=== PATIENT | male | born 1980 | race African-American/Black ===

== ENCOUNTER → 2019-04-03 | Outpatient (CLI) | payer OTHER ==
--- NOTE | 2019-04-03 14:09 | CT ---
EXAMINATION TYPE: CT abdomen pelvis wo con DATE OF EXAM: 04/03/2019 COMPARISON: None HISTORY: LUQ to epigastric pain/umbilical pain, acid reflux CT DLP: 887.3 mGycm Examination of the solid and hollow viscera is limited given the lack of contrast. FINDINGS: LUNG BASES: No evidence for nodule. No evidence for infiltrate. LIVER/GB: The gallbladder is unremarkable. No space-occupying hepatic lesion. PANCREAS: No pancreatic mass identified. No inflammatory process seen. SPLEEN: No evidence for splenomegaly. No intrasplenic lesions seen. ADRENALS: No adrenal nodules identified. No evidence for thickening. KIDNEYS: No evidence for renal mass. No nephrolithiasis. No hydronephrosis. BOWEL: Nonvisualization of the appendix however no inflammatory process is seen in right lower quadra nt. No evidence of bowel obstruction. No inflammatory process. Lymph nodes: No evidence for adenopathy greater than 1 cm. Abdominal aorta: Atheromatous changes seen. No evidence for aneurysm. Genital organs: No significant abnormality. Other: No significant abnormality. IMPRESSION: 1. No distinct abnormality to account for the patient's symptoms.
== END | disposition home or self-care (01) ==
LOC: RADCTMAIN 11:45
PROVIDERS: ATTEND Family Medicine
DX: R10.9 Unspecified abdominal pain (principal); R10.2 Pelvic and perineal pain
CPT/HCPCS: 74176

== ENCOUNTER → 2019-04-08 | Outpatient (CLI) | payer OTHER ==
--- NOTE | 2019-04-08 10:48 | FL ---
EXAMINATION TYPE: FL UGI DATE OF EXAM: 04/08/2019 COMPARISON: NONE HISTORY: Epigastric pain, particularly left-sided abdominal pain for a few months. TECHNIQUE: A double contrast UGI study is performed. 1 minute and 30 seconds of fluoroscopy time was utilized with 48 fluoroscopic images saved. FINDINGS: The esophagus shows normal motility and emptying into the stomach. No evidence of hiatal hernia or s tricture noted. The stomach shows normal distensibility, peristalsis, and mucosal folds. Although the mucosal folds a re upper limits of normal in size. No evidence of any mass or ulcer disease. Mild degree gastroesoph ageal reflux was seen during real time performance of this study. The duodenal bulb, sweep, and proximal small bowel loops are unremarkable. IMPRESSION: 1. Mild degree gastroesophageal reflux. 2. Rugal fold thickness is upper limits of normal and could relate to early gastritis. No focal ulcer ation is seen.
== END | disposition home or self-care (01) ==
LOC: RADUSWWP 09:23
PROVIDERS: ATTEND Family Medicine
DX: K21.9 Gastro-esophageal reflux disease without esophagitis (principal)
CPT/HCPCS: 74240

== ENCOUNTER 2022-04-25 07:42 | Day surgery (SDC) | payer BC ==
[2022-04-21 10:59] VITALS: BMI 34.8
[2022-04-25] MEDS ORDERED: LACTATED RINGERS 1,000 ML IV SCH (08:05)
[2022-04-25] MEDS ORDERED: LIDOCAINE 1% (10MG/ML) FOR IV START INTRADERMA PRN (08:05)
[2022-04-25 08:09] VITALS: TEMP 97.8
[2022-04-25] MEDS ORDERED: fentaNYL (PF) 50 MCG/ML 2 ML AMP ONE (09:18)
[2022-04-25] MEDS ORDERED: MIDAZOLAM 2 MG/2 ML VIAL ONE (09:18)
[2022-04-25] MEDS ORDERED: LIDOCAINE 2% INJ 20 MG/ML (2 ML VIAL) ONE (09:18)
[2022-04-25] MEDS ORDERED: PROPOFOL 10 MG/ML 20 ML VIAL IV ONE (09:18)
--- NOTE | 2022-04-25 09:32 | P.PCN ---
Date of Procedure: 04/25/22 Procedure(s) Performed: BRIEF HISTORY: Patient is a 41-year-old, pleasant, female scheduled for an upper endoscopy as a part of evaluation of ulcerative history of GERD and intermittent dysphagia to solids. PROCEDURE PERFORMED: Esophagogastroduodenoscopy with the biopsy . PREOPERATIVE DIAGNOSIS: Long-standing history of GERD/intermittent dysphagia to solids V sedation per anesthesia. PROCEDURE: After informed consent was obtained, the patient was brought into the endoscopy unit. IV sedation was administered by Anesthesia under continuous monitoring. Initially the Olympus GIF-140 video endoscope was inserted into the mouth. Esophagus intubated without any difficulty. It was gradually advanced into the stomach and duodenum and carefully examined. The bulb and the second part of the duodenum appeared normal. The scope at this time was withdrawn to the stomach, adequately insufflated with air, and upon careful examination, mucosa of the antrum patchy areas of erythema consistent with gastritis and biopsies were done from this area. Mucosa of the , body, cardia and the fundus appeared normal. The scope was then withdrawn into the esophagus. The GE junction was located at 41 cm from the incisors. The esophagus appeared normal. There were were superficial erosions in the distal esophagus consistent with LA grade B reflux esophagitis. Rest of esophagus appeared normal and the patient tolerated the procedure well. IMPRESSION: 1. Normal-appearing esophagus with no evidence of esophageal stricture 2. Mild antral gastritis 3. LA grade B reflux esophagitis. RECOMMENDATIONS: The findings of this examination were discussed with the patient as well as his family. He was advised to follow with the biopsy results. Continue with omeprazole 20 mg daily and follow antrum reflux measures..
[2022-04-25 09:36] VITALS: PULSE 74
[2022-04-25 09:49] VITALS: BP 138/98; RESP 16
== END 2022-04-25 10:08 | disposition home or self-care (01) ==
LOC: ORWHC2ENDO 07:42
PROVIDERS: ATTEND Internal Medicine Gastroenterology
DX: K29.50 Unspecified chronic gastritis without bleeding (principal); K21.00 Gastro-esophageal reflux disease with esophagitis, without bleeding; G47.33 Obstructive sleep apnea (adult) (pediatric); Z79.1 Long term (current) use of non-steroidal anti-inflammatories (NSAID); Z98.890 Other specified postprocedural states
CPT/HCPCS: 43239; J2250; J3010; J2704; J2001; 88305

== ENCOUNTER → 2024-02-15 | Outpatient (CLI) | payer BC ==
[2024-02-15 15:12] VITALS: BP 138/86; PULSE 68; RESP 16; TEMP 98.5
--- NOTE | 2024-02-15 15:47 | P.SLEEP ---
History of Present Illness DATE: 02/15/2024 CONSULTATION/NEW PATIENT EVALUATION HISTORY OF PRESENT ILLNESS/SLEEP-WAKE EVALUATION: 43-year-old gentleman had been evaluated in the sleep center for possible obstructive sleep apnea hypopnea syndrome. Patient has history of obstructive sleep apnea diagnosed 10 years ago, he was on treatment with CPAP, for different reason quit treatment about 7 years ago. SLEEP SCHEDULE: Usually sleep schedule from 12 AM to 10 AM on working days and from 112 PM until 10 AM on weekend. Patient works at afternoon shift. FALLING ASLEEP: Patient has difficulties with falling asleep, has TV set in bedroom. DURING SLEEP: Patient usually sleeps on the side position with loud snoring and witnessed episodes of stop breathing during the sleep. Patient wakes up from sleep 3 times with 2 episodes of nocturia positive history of gasping for air and choking. No history of hypnogogical hallucinations, sleep paralysis, or cataplexy. DURING THE DAY/WAKE STATE: In the morning patient wake up tired, falling asleep during the day, has problems with memory, concentration, irritability. [place] sleepiness scale is in very high range of 17. Patient takes nap in the middle of the day. PAST MEDICAL HISTORY: Acid reflux . PAST SURGICAL HISTORY: Cyst removed from the right side of the face many years ago[]. MEDICATIONS: Omeprazole. SOCIAL HISTORY: Please see below. FAMILY HISTORY: Hypertension, heart problems, stroke, cancer, diabetes. REVIEW OF SYSTEMS: Loud snoring, multiple awakenings from sleep, sleepiness during the day. No fevers. No double vision. No recent chest pain. No shortness of breath. No abdominal pain. No bleeding episodes. No blood in urine. No seizure episodes. PHYSICAL EXAMINATION: GENERAL: A pleasant patient without any distress. VITAL SIGNS: Please see below, weight 258 pounds, BMI 37.5. HEENT: PERRLA, EOMI. Evaluation of oropharynx showed tongue protrudes midline, low position of soft palate Mallampati 4. NECK: Supple. No JVD. Thyroid is not palpable. 18 inches in circumference. LUNGS: Clear to percussion and to auscultation. Good air exchange. No wheezing or rhonchi. HEART: S1, S2 regular. No murmurs, gallops or rubs. ABDOMEN: Soft and nontender. Bowel sounds are present. No organomegaly appreciated. EXTREMITIES: No clubbing or cyanosis. DIRECTOR OUTCOMES: Awake, alert, and oriented x3. Cranial nerves 2 to 7 intact. There is no fasciculation or atrophy noted. No focal deficits observed. ASSESSMENT: 1. Loud snoring, multiple awakenings from sleep with gasping for air and choking, extremely low position of soft palate Mallampati 4, wide neck 18 inches in circumference, sleepiness with [place] Sleepiness Scale 17, history of obstructive sleep apnea before. Obstructive sleep apnea hypopnea syndrome. 2. Obesity, BMI 37.5. 3. Acid reflux. 4. Increasing blood pressure in the office today 138/86. 5 status post cyst removed from the right side of the face many years ago. PLAN: 1. Home sleep apnea test for evaluation of patient's breathing during sleep. 2. Following plan after reading sleep study. 3. Preferable position during sleep on the side. 4. No driving if patient feels any sleepiness. Patient is aware of civil and criminal liability for unsafe driving. 5. Sleep hygiene with regular sleep time for at least 7.5-8 hours. 6. Watching and losing weight. Thank you very much for referring this patient for consultation. Sincerely, Paras Whitaker MD, PhD, FAASM. Diplomat of [employer], Sleep Medicine Board by [employer] Counselor of [facility] [place] cc: Vidya Guevara MD, Vidya [place] CR[employer]INAL JUSTICE TEACHER-C Past Medical History Past Medical History: GERD/Reflux, Sleep Apnea/CPAP/BIPAP Additional Past Medical History / Comment(s): recent chest pain reports more to left side, questioning if pulled muscle or problem with esophogus History of Any Multi-Drug Resistant Organisms: None Reported Additional Past Surgical History / Comment(s): cyst removed to face Past Anesthesia/Blood Transfusion Reactions: No Reported Reaction Past Psychological History: No Psychological Hx Reported Smoking Status: Never smoker Past Alcohol Use History: Occasional Additional Past Alcohol Use History / Comment(s): occassional weekends Past Drug Use History: None Reported - Past Family History Mother Family Medical History: Cancer, Coronary Artery Disease (CAD), Rheumatoid Arthritis (RA) Additional Family Medical History / Comment(s): breast Medications and Allergies Home Medications Medication Instructions Recorded Confirmed Type Cholecalciferol [Vitamin D3 (10 50 mcg PO DAILY 04/21/22 02/15/24 History Mcg = 400 Iu)] Multivitamins, Thera [Multivitamin 1 tab PO DAILY 04/21/22 02/15/24 History (formulary)] Omeprazole 40 mg PO DAILY 04/21/22 02/15/24 History Allergies Allergy/AdvReac Type Severity Reaction Status Date / Time No Known Allergies Allergy Verified 04/25/22 08:06 Physical Exam Vitals: Vital Signs Temp Pulse Resp BP Pulse Ox 02/15/24 15:11 98.5 F 68 16 138/86 97 Intake and Output 02/15/24 02/15/24 02/15/24 06:59 14:59 22:59 Other: Weight 117.027 kg Sleep Note - Sleep Data ESS Total: 17 - Sleep Note Sleep Note: Temperature: 98.5 F Pulse Rate: 68 Respiratory Rate: 16 Blood Pressure: 138/86 SpO2: 97 Height: 5 ft 9.5 in Weight: 117.027 kg BMI: Neck Circumference: 18
== END ==
LOC: 3 N SLEEP 14:49
PROVIDERS: ATTEND Internal Medicine
CPT/HCPCS: 99211

== ENCOUNTER → 2024-03-01 | Outpatient (CLI) | payer BC ==
--- NOTE | 2024-03-07 11:52 | P.PCN ---
Description of Procedure: CLINICAL: A home sleep apnea test has been done for confirmation of possible obstructive sleep apnea-hypopnea syndrome. DESCRIPTION OF PROCEDURE: RESULTS: Recording time was 8 hours 24 minutes. Evaluation time was 8 hours 12 minutes. Evaluation time is sufficient for making conclusion about results of the test. Raw data of sleep recording has been reviewed and is adequate. Respiratory channel showed 14 apneas and 165 hypopneas. Apnea-hypopnea index was 21.8 per hour. Pulse rate in the range between minimum 54, maximum 115, average 66 by computer calculation. Lowest desaturation was 73%. IMPRESSION: 1. Obstructive Sleep Apnea Hypopnea Syndrome in moderate range. Please see other impressions from consultation. PLAN: 1. The patient will be started on auto-PAP treatment for correction of respiratory abnormallities during sleep. 2. I will see patient for follow up visit to discuss results of the test, evaluate clinical response on treatment with PAP therapy and make any necessary adjustments related to mask fitting, pressure, and humidification. 3. Watching weight. 4. Sleep hygiene with regular time in bed for at least 8 hours. 5. No driving if feeling any sleepiness. Thank you very much for allowing me to participate in the management of your patient. Sincerely, Paras Whitaker MD, PhD, FAASM Diplomat of [place] [employer] Sleep Medicine Board of [place] [employer] Sulfur Chloride Operator of [facility] [place] cc: Vidya Guevara MD
== END ==
LOC: 3 N SLEEP 12:55
PROVIDERS: ATTEND Internal Medicine
DX: G47.33 Obstructive sleep apnea (adult) (pediatric) (principal)

== ENCOUNTER → 2024-06-25 | Outpatient (CLI) | payer BC ==
--- NOTE | 2024-06-25 12:19 | NM ---
EXAMINATION TYPE: NM hepatobiliary w EF DATE OF EXAM: 06/25/2024 COMPARISON: NONE INDICATION: Right upper quadrant pain TECHNIQUE: After the intravenous administration of 5 mCi Tc 99m Mebrofenin hepatobiliary scintigraphy is performed. Images were obtained immediately post injection. FINDINGS: There is prompt uptake and excretion of radiotracer by the liver. Extrahepatic ducts are identified at 6 minutes. The gallbladder is visualized within 8 minutes. Small bowel activity is noted within 12 minutes. At one hour 8 ounces of oral ensure plus is given to mimic CCK and gallbladder ejection fraction is c alculated at 88 %, which is elevated. (Normal >35% and <80%.). IMPRESSION: 1. Correlate for biliary hyperkinesia. 2. No obstruction is evident. [facility], , 06/25/2024 12:17 PM
== END | disposition home or self-care (01) ==
LOC: RADNMMAIN 06:57
PROVIDERS: ATTEND Family Medicine
DX: R10.11 Right upper quadrant pain (principal); R10.12 Left upper quadrant pain; R10.13 Epigastric pain
CPT/HCPCS: 78226; A9537

== ENCOUNTER → 2024-07-24 | Outpatient (CLI) | payer BC ==
[2024-07-24 10:31] VITALS: BP 135/82; PULSE 79; RESP 16; TEMP 98.1
--- NOTE | 2024-07-24 12:18 | P.PROGSL ---
Subjective DATE: 07/24/2024 FOLLOW UP VISIT. Patient with obstructive sleep apnea hypopnea syndrome return to sleep center for follow-up visit. Recently patient had sleep study which documented obstructive sleep apnea hypopnea syndrome. Patient was initiated on PAP therapy and today is first visit after treatment was started. Patient was able to use PAP equipment every night for the whole night. Patient sleeps better with CPAP and feels better during the day. The patient does not have significant problems with the mask, PAP pressure and humidification. [place] sleepiness scale is 6, which is in normal range. In consultation before treatment with CPAP [place] Sleepiness Scale was 17. I checked information from PAP unit. PAP unit pressure 5-14, average 11.9 cm H2O. Usage is 87% and 70% for more then 4 hours, average 5.5 hours per night. Leak is 9.3 l/m, which is in acceptable range. Apnea Hypopnea Index is 1.1, which is normal. MEDICATIONS:1. Omeprazole During physical exam: GENERAL: A pleasant patient without any distress. VITAL SIGNS: Please see below, weight 270.8 pounds. HEENT: PERRLA, EOMI.low position of soft palate, Mallapati 4 . NECK: Supple. No JVD. LUNGS: Clear to percussion and to auscultation. Good air exchange. No wheezing or rhonchi. HEART: S1, S2 regular. ABDOMEN: Soft and nontender.[] EXTREMITIES: No clubbing or cyanosis. INJECTION MOLDING MACHINE SETTER: Awake, alert, and oriented x3. No focal deficit. Impressions: 1. Obstructive sleep apnea-hypopnea syndrome. Patient demonstrated great compliance with treatment, benefiting from treatment. [place] Sleepiness Scale improved from 17 down to 6, which is normal now. 2. Acid reflux. 3. Mild obesity. 4. Status post cyst removed from the right side of the face in the past. Plan: 1. Continue using PAP equipment every night for the whole night. 2. To change air filter at least 1-2 times per month. 3. PAP unit should stay lower then position of the head. 4. Advised patient to remove all remaining water from humidifier canister daily and make it dry after each usage. Refill canister with fresh distilled water before each usage. 5. Sleep hygiene with regular time in bed for at least 8 hours. 6. Precautions related to driving. No driving if feel any sleepiness. 7. I will maintain prescription for PAP supplies including mask, tube, filters. 8. Follow up visit in 8 months or earlier if patient has any problems. 9. Watching and losing weight. Thank you very much for allowing me to participate in the management of your patient. Paras Whitaker MD, PhD, FAASM. Diplomat of [place] [employer], Sleep Medicine Board by [employer] Builder of [facility] [place] Objective - Vital Signs Vital Signs: Vital Signs Temp 98.1 F 07/24/24 10:30 Pulse 79 07/24/24 10:30 Resp 16 07/24/24 10:30 BP 135/82 07/24/24 10:30 Pulse Ox 96 07/24/24 10:30 FiO2 Home Medications: Home Medications Medication Instructions Recorded Confirmed Type Cholecalciferol [Vitamin D3 (10 50 mcg PO DAILY 04/21/22 02/15/24 History Mcg = 400 Iu)] Multivitamins, Thera [Multivitamin 1 tab PO DAILY 04/21/22 02/15/24 History (formulary)] Omeprazole 40 mg PO DAILY 04/21/22 02/15/24 History
== END ==
LOC: 3 N SLEEP 10:22
PROVIDERS: ATTEND Internal Medicine
DX: G47.33 Obstructive sleep apnea (adult) (pediatric) (principal); K21.9 Gastro-esophageal reflux disease without esophagitis; E66.9 Obesity, unspecified; Z87.2 Personal history of diseases of the skin and subcutaneous tissue
CPT/HCPCS: 99212